=== PATIENT | female | born 1955 | race Caucasian/White ===

== ENCOUNTER → 2022-01-08 09:36 | Outpatient (BNVA) | payer MEDICARE, SELFPAY | PROVIDERS: PCP Internal Medicine; Visit Provider Internal Medicine Endocrinology, Diabetes & Metabolism | DX: E04.0 Nontoxic diffuse goiter (principal) | CPT/HCPCS: 99202 ==

== ENCOUNTER → 2023-09-17 13:55 | Outpatient (BNV) | payer MEDICARE, SELFPAY | PROVIDERS: PCP Internal Medicine; Visit Provider Internal Medicine | DX: R79.89 Other specified abnormal findings of blood chemistry (principal) | CPT/HCPCS: 99204; 99214; G2211 ==

== ENCOUNTER 2024-04-23 08:03 | Outpatient (REF) | payer MEDICARE, SELFPAY ==
[2024-04-23 09:33] LABS: Ferritin 452 ng/mL (10-250)
== END 2024-04-23 08:04 | disposition home or self-care (01) ==
LOC: HO.BBR 08:03
PROVIDERS: PCP Internal Medicine; Visit Provider Internal Medicine
DX: E83.119 Hemochromatosis, unspecified (principal)
CPT/HCPCS: 36415; 82728; 85014; 85018; 99195

== ENCOUNTER 2024-06-21 08:01 | Outpatient (REF) | payer MEDICARE, SELFPAY ==
[2024-06-21 10:46] LABS: Ferritin 371 ng/mL (10-250)
== END 2024-06-21 08:02 | disposition home or self-care (01) ==
LOC: HO.BBR 08:01
PROVIDERS: PCP Internal Medicine; Visit Provider Internal Medicine
DX: E83.111 Hemochromatosis due to repeated red blood cell transfusions (principal)
CPT/HCPCS: 36415; 82728; 85014; 85018; 99195

== ENCOUNTER 2024-08-19 07:45 | Outpatient (REF) | payer MEDICARE, SELFPAY ==
[2024-08-19 08:20] LABS: MANUAL DIFF FLAG NO
[2024-08-19 08:32] LABS: Basophils Percent Auto 0.6 % (0-2); Eosinophils Absolute Auto 0.1 X10*3/uL (0.0-0.4); Eosinophils Percent Auto 2.8 % (0-4); Hematocrit 41.1 % (37.0-47.0); Hemoglobin 13.5 g/dl (12.0-16.0); Imm Gran Abs Auto 0.01 X10*3/uL (0.00-0.03); Imm Gran Pct Auto 0.2 % (0.0-0.4); Lymphocytes Absolute Auto 1.4 X10*3/uL (1.2-4.9); Lymphocytes Percent Auto 27.4 % (20-40); Mean Corpuscular HGB Conc 32.8 g/dl (31.0-35.0); Mean Corpuscular Hemoglobin 28.9 pg (27.0-33.0); Mean Platelet Volume 10.9 fL (9.4-12.3); Monocytes Absolute Auto 0.4 X10*3/uL (0.1-1.2); Monocytes Percent Auto 8.3 % (2-11); Neutrophils Absolute Auto 3.1 x10*3/uL (2.0-8.3); Neutrophils Percent Auto 60.7 % (45-73); Platelet Count 164 X10*3/uL (160-400); Red Blood Count 4.67 X10*6/uL (4.20-5.50); Red Cell Distribution Width 13.4 % (11.0-16.0); White Blood Count 5.1 X10*3/uL (4.8-10.8)
[2024-08-19 09:13] LABS: Alanine Aminotransferase 40 U/L (0-31); Albumin Level 3.8 g/dL (3.5-5.0); Alkaline Phosphatase 145 U/L (39-117); Anion Gap 11 (12-20); Aspartate Amino Transferase 29 U/L (5-31); Bilirubin Total 0.3 mg/dL (0.0-1.0); Blood Urea Nitrogen 13 mg/dL (9-16); Calcium 9.6 mg/dL (8.4-10.2); Carbon Dioxide 27 mmol/L (22-29); Chloride 110 mmol/L (96-108); Cholesterol 148 mg/dL (<200); Estimated Glomerular Filt Rate > 60; Glucose Random 127 mg/dL (60-115); HDL Cholesterol 37 mg/dL (>40); Iron 52 mcg/dL (30-160); Percent Iron Saturation 23 % (15-50); Potassium 3.8 mmol/L (3.3-5.1); Sodium 144 mmol/L (135-145); Total Iron Binding Capacity 231 mcg/dL (228-428); Total Protein 6.7 g/dL (6.5-8.0); Unsaturated Iron Binding 179 ug/dL
[2024-08-19 09:33] LABS: Ferritin 298 ng/mL (10-250); TSH reflex Free T4 2.48 uIU/mL (0.32-4.0); Vitamin B12 552 pg/mL (200-900); Vitamin D 25-OH Total 18.9 ng/mL (>30)
[2024-08-20 06:03] LABS: LDL Cholesterol Direct 101 mg/dL (<100)
[2024-08-24 14:24] LABS: Apolipoprotein B 75 mg/dL (<90)
[2024-08-25 07:03] LABS: Lipoprotein A 33 nmol/L (<75)
== END 2024-08-19 07:46 | disposition home or self-care (01) ==
LOC: HO.BBR 07:45
PROVIDERS: Absent Provider Internal Medicine; PCP Internal Medicine; Visit Provider Internal Medicine
DX: E83.119 Hemochromatosis, unspecified (principal); E04.2 Nontoxic multinodular goiter; K76.0 Fatty (change of) liver, not elsewhere classified; N28.1 Cyst of kidney, acquired; R79.89 Other specified abnormal findings of blood chemistry; Z68.35 Body mass index [BMI] 35.0-35.9, adult
CPT/HCPCS: 36415; 80053; 82172; 82306; 82465; 82607; 82728; 83540; 83695; 83718; 83721; 83735; 84443; 85018; 85025; 99195

== ENCOUNTER 2024-10-22 08:03 | Outpatient (REF) | payer MEDICARE, SELFPAY ==
[2024-10-22 09:43] LABS: Ferritin 192 ng/mL (10-250)
== END 2024-10-22 08:04 | disposition home or self-care (01) ==
LOC: HO.BBR 08:03
PROVIDERS: PCP Internal Medicine; Visit Provider Internal Medicine
DX: E83.111 Hemochromatosis due to repeated red blood cell transfusions (principal)
CPT/HCPCS: 36415; 82728; 85018; 99195

== ENCOUNTER 2024-12-23 07:55 | Outpatient (REF) | payer MEDICARE, SELFPAY ==
[2024-12-23 09:41] LABS: Ferritin 112 ng/mL (10-250)
== END 2024-12-23 07:56 | disposition home or self-care (01) ==
LOC: HO.BBR 07:55
PROVIDERS: PCP Internal Medicine; Visit Provider Internal Medicine
DX: E83.111 Hemochromatosis due to repeated red blood cell transfusions (principal)
CPT/HCPCS: 36415; 82728; 85018; 99195

== ENCOUNTER 2025-02-23 07:57 | Outpatient (REF) | payer MEDICARE, SELFPAY ==
[2025-02-23 10:11] LABS: Ferritin 93 ng/mL (10-250)
== END 2025-02-23 07:58 | disposition home or self-care (01) ==
LOC: HO.BBR 07:57
PROVIDERS: PCP Internal Medicine; Visit Provider Internal Medicine
DX: E83.119 Hemochromatosis, unspecified (principal)
CPT/HCPCS: 36415; 82728; 85014; 85018; 99195